=== PATIENT | female | born 1975 | race African-American/Black ===

== ENCOUNTER 2018-02-15 19:49 | Emergency (ER) | payer SELFPAY ==
[~2018-02-15] VITALS: Ht 162.6 cm; Wt 95.3 kg
--- NOTE | 2018-02-15 20:04 | NUR ---
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 [employer] OFFICERS BEDSIDE WITH PT. PT REFUSES TO ANSWER MOST QUESTIONS AND GIVES 2-4 WORD ANSWERS. PT IS AAOX3. PER EMS, PT WAS +SI,HI. UPON EXAMINATION BY MD, PT STATES SHE DOES NOT WANT TO HURT HERSELF OR OTHERS. PT DOES STATE SHE HEARS VOICES TO "DO BAD THINGS." PER EMS, PT WAS NOT GIVEN ANY MEDICATION IN FIELD DO TO PT REFUSING TO ANSWER QUESTIONS. VSS. RESP EVEN AND UNLABORED. NO S/S OF DISCOMFORT NOTED IN PT. PT PLACED ON MONITOR AND POX. EMT BEDSIDE FOR EKG. MD BEDSIDE FOR PT EVAL. SI AND HI PRECAUTIONS IN PLACE.
[2018-02-15 20:08] VITALS: BP 151/106
--- NOTE | 2018-02-15 20:08 | NUR ---
[employer] OFFICERS LEFT PT'S BEDSIDE STATING PT IS NO LONGER IN THEIR CUSTODY.
--- NOTE | 2018-02-15 20:14 | NUR ---
PT TO RESTROOM TO GIVE URINE SAMPLE.
[2018-02-15 20:16] LABS: BASOPHILS # (AUTO) 0.1 /CMM (0.0-0.2); BASOPHILS % (AUTO) 1.4 % (0.0-2.0); EOSINOPHILS % (AUTO) 0.3 % (0.0-6.0); HEMATOCRIT 42 % (33-45); HEMOGLOBIN 14.6 g/dL (11.5-14.8); LYMPHOCYTES % (AUTO) 13.6 % (20.0-44.0); MEAN CORPUSCULAR HEMOGLOBIN 30 PG (26.0-33.0); MEAN CORPUSCULAR HGB CONC 35 g/dl (31.0-36.0); MEAN CORPUSCULAR VOLUME 86 fL (82-100); MONOCYTES # (AUTO) 0.4 /CMM (0.1-1.30); MONOCYTES % (AUTO) 5.4 % (2.0-12.0); NEUTROPHILS # (AUTO) 5.8 /CMM (1.8-8.9); NEUTROPHILS % (AUTO) 79.3 % (43.0-81.0); PLATELET COUNT (AUTO) 278 /CMM (150-450); RDW COEFFICIENT OF VARIATION 13.9 (11.5-15.0); WHITE BLOOD COUNT (AUTO) 7.3 K/uL (4.3-11.0)
--- NOTE | 2018-02-15 20:16 | NUR ---
PT OUT OF RESTROOM. URINE SAMPLE COLLECTED. PT BACK TO BED AND PLACED ON MONITOR AND POX.
--- NOTE | 2018-02-15 20:19 | NUR ---
PT NOT IN HER ROOM. PT NOT BEDSIDE. PT'S BELONGINGS BEDSIDE. PT NOT FOUND. SECURITY NOTIFIED. ER STAFF AND ER MD NOTIFIED. STAFF AND SECUIRTY NOTIFIED AND LOOKED FOR PT. PT NOT FOUND IN ER OR IN OTHER PARTS OF THE HOSPITAL. PT ELOPED FROM FACILITY. ER MD NOTIFIED OF PT NOT BEING FOUND. 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 [employer] NOTIFIED OF ELOPED PT WITH IV IN PLACE.
[2018-02-15 20:32] LABS: ALANINE AMINOTRANSFERASE 36 U/L (12-78); ALCOHOL, BLOOD < 3 mg/dL (0-0); ALKALINE PHOSPHATASE 71 U/L (46-116); ASPARTATE AMINOTRANSFERASE 35 U/L (15-37); BILIRUBIN,DIRECT 0.1 mg/dL (0.0-0.2); BILIRUBIN,TOTAL 0.3 mg/dL (0.2-1.0); CALCIUM, SERUM 9.2 mg/dL (8.5-10.1); CARBON DIOXIDE 26 mmol/L (21-32); CHLORIDE 101 mmol/L (98-107); GLUCOSE 108 mg/dL (74-106); POTASSIUM 3.3 mmol/L (3.5-5.1); SALICYLATE 4.6 mg/dL (2.8-20.0); SODIUM SERUM 138 mmol/L (136-145); TOTAL PROTEIN, SERUM 8.7 g/dL (6.4-8.2); UREA NITROGEN, BLOOD 7 mg/dL (7-18)
[2018-02-15 20:34] LABS: ACETAMINOPHEN < 2 ug/ml (10-30)
--- NOTE | 2018-02-15 20:37 | NUR ---
PT FOUND BY SECURITY AND BROUGHT BACK TO ROOM. PER SECURITY, PT WAS WONDERING AROUND THE HOSPITAL. PT HAD PULLED OUT HER IV AND DOES NOT HAVE AN IV IN PLACE ANYMORE. MADE AWARE. CALL CANCELLED TO [employer]. PT STATES SHE WANTS TO STAY AND BE SEEN. PT IN BED
[2018-02-15 21:10] LABS: APPEARANCE,URINE Clear (CLEAR); BILIRUBIN,URINE Negative (NEGATIVE); BLOOD, URINE Trace-intact Ery/uL (NEGATIVE); COLOR,URINE Yellow (YELLOW); KETONES,URINE Negative (NEGATIVE); LEUKOCYTE ESTERASE ,URINE Negative (NEGATIVE); NITRITE, URINE Negative (NEGATIVE); PROTEIN,URINE Trace mg/dl (NEGATIVE); UGLUCOSE Negative (NEGATIVE); UROBILINOGEN,URINE 0.2 EU/dL (0.2)
--- NOTE | 2018-02-15 21:11 | NUR ---
Patient eloped from facility. ER MD notified. Pt took belongings and left the facility stating she does not want to be here. IV's removed prior to pt leaving.
[2018-02-15 21:24] LABS: BACTERIA,URINE Rare /HPF (None Seen); RBC,URINE NONE SEEN /HPF (0-2); SQUAMOUS EPITHELIAL CELL,UR Few /HPF (None Seen); WBC,URINE NONE SEEN /HPF (0-3)
== END 2018-02-15 21:15 | disposition left against medical advice (07) ==
LOC: ER 19:50
DX: F20.9 Schizophrenia, unspecified (principal); R45.850 Homicidal ideations; R45.851 Suicidal ideations; F10.10 Alcohol abuse, uncomplicated; F17.200 Nicotine dependence, unspecified, uncomplicated
CPT/HCPCS: 36415; 80048-TC; 80076-TC; 80305; 81000-TC; 84703-TC; 85025-TC; A4606; G0480; Z7610